=== PATIENT | male | born 1965 | race Caucasian/White ===

== ENCOUNTER 2024-02-24 18:12 | Inpatient (IN) | payer OTHER ==
[~2024-02-24] VITALS: Ht 177.8 cm; Wt 115.2 kg
[2024-02-24] MEDS: ONDANSETRON HCL 4MG/2ML INJ IV ONE (19:54)
[2024-02-24] MEDS: MORPHINE SULFATE 4 MG/ML INJ (FOR IV/IM USE) IV ONE (19:54)
[2024-02-24 21:49] LABS: BASOPHILS % 0.2 % (0.0-2.0); EOSINOPHILS % 0.1 % (0.0-5.0); HEMATOCRIT. 40.7 % (42.0-52.0); HEMOGLOBIN. 13.5 g/dL (14.0-18.0); LYMPHOCYTES % 7.1 % (20.0-50.0); MEAN CORPUSCULAR HEMOGLOBIN 32.9 pg (28.0-32.0); MEAN CORPUSCULAR HGB CONC 33.2 g/dL (31.0-37.0); MEAN CORPUSCULAR VOLUME 98.9 fL (80.0-94.0); MEAN PLATELET VOLUME 10.1 fl (7.4-10.4); MONOCYTES % 5.3 % (2.0-8.0); NEUTROPHILS % 87.3 % (40.0-76.0); PLATELET 208 x1000/uL (130-400); RED BLOOD CELL COUNT 4.12 mill/uL (4.7-6.1); RED CELL DISTRIBUTION WIDTH 14.1 % (11.6-14.6); WHITE BLOOD COUNT 11.4 x1000/uL (4.5-11.0)
[2024-02-24 21:52] LABS: CHLORIDE 109 mEq/L (98-107); POTASSIUM 3.5 mEq/L (3.5-5.1); SODIUM 143 mEq/L (136-145)
[2024-02-24 21:53] LABS: CARBON DIOXIDE 24 mEq/L (21-32)
[2024-02-24 21:54] LABS: CALCIUM 9.4 mg/dL (8.7-10.4)
[2024-02-24 21:58] LABS: CREATININE 0.9 mg/dL (0.6-1.3); GLUCOSE 127 mg/dL (70-105)
[2024-02-24 21:59] LABS: UREA NITROGEN BLOOD 20 mg/dL (9-23)
[2024-02-24] MEDS: HYDROCODONE/ACETAMINOPHEN 5/325MG TABLET PO PRN (23:26)
[2024-02-25] MEDS ORDERED: DOCUSATE SODIUM 100MG CAPSULE PO PRN (00:15)
[2024-02-25] MEDS ORDERED: ZOLPIDEM TARTRATE 5MG TABLET PO PRN (00:15)
[2024-02-25] MEDS ORDERED: ONDANSETRON HCL 4MG/2ML INJ IV PRN ×3 (00:15→17:30)
[2024-02-25] MEDS ORDERED: IPRATROPIUM/ALBUTEROL 0.5-3(2.5)MG/3ML NEB NEB PRN (00:15)
[2024-02-25] MEDS: DEXT 5%/0.45% NACL 1000ML 1,000 ML IV SCH (00:15)
[2024-02-25] MEDS ORDERED: DEXTROSE 50% WATER 50ML SYRINGE IV PRN (00:15)
[2024-02-25] MEDS ORDERED: CLONIDINE 0.1MG TABLET PO PRN (00:15)
[2024-02-25 00:21] LABS: CLARITY URINE CLEAR (CLEAR); COLOR URINE YELLOW (YELLOW); GLUCOSE URINE 3+ (NEGATIVE); KETONES URINE 1+ (NEGATIVE); LEUKOCYTE ESTERASE URINE NEGATIVE (NEGATIVE); NITRITE URINE NEGATIVE (NEGATIVE); OCCULT BLOOD URINE NEGATIVE (NEGATIVE); PROTEIN URINE 2+ (NEGATIVE); SPECIFIC GRAVITY URINE 1.043 (1.005-1.030); UROBILINOGEN URINE 0.2 E.U./dL (0.2-1.0)
[2024-02-25 00:30] LABS: *AMPHETAMINES SCREEN URINE NEGATIVE (NEGATIVE); *BARBITURATES SCREEN URINE NEGATIVE (NEGATIVE); *BENZODIAZEPINES SCREEN URINE NEGATIVE (NEGATIVE)
[2024-02-25 00:31] LABS: *COCAINE SCREEN URINE NEGATIVE (NEGATIVE); CANNABINOID URINE SCREEN NEGATIVE (NEGATIVE); ECSTASY MDMA SCREEN URINE NEGATIVE (NEGATIVE); METHADONE URINE SCREEN NEGATIVE (NEGATIVE); OPIATES URINE SCREEN PRESUMPTIVE POSITIVE (NEGATIVE); PHENCYCLIDINE URINE SCREEN NEGATIVE (NEGATIVE)
[2024-02-25 00:53] LABS: BACTERIA URINE NONE SEEN; RBC URINE NONE SEEN /hpf (0-2); SQUAMOUS EPITHELIAL CELL URINE NONE SEEN /lpf (RARE/1+); WBC URINE NONE SEEN /hpf (0-2)
[2024-02-25] MEDS: MORPHINE SULFATE 2 MG/ML INJ (NOT FOR IM USE) IV PRN (01:01)
[2024-02-25 02:00] VITALS: BP 144/78; PULSE 100; RESP 17; TEMP 36.3068
[2024-02-25 02:00] LABS: CREATINE KINASE MB FRACTION 3.1 ng/mL (0.5-3.6)
[2024-02-25 02:02] LABS: CREATINE KINASE 197 IU/L (46-171)
[2024-02-25 02:19] LABS: TROPONIN I HIGH SENSITIVITY < 4 ng/L (3.0-53)
[2024-02-25] MEDS: MORPHINE SULFATE 4 MG/ML INJ (FOR IV/IM USE) IV PRN (05:24)
[2024-02-25] MEDS: BLOOD SUGAR DIAGNOSTIC STRIP TEST SCH (06:54)
[2024-02-25] MEDS: INSULIN LISPRO 100 UNITS/ML SUBCUT SCH (07:15)
[2024-02-25 08:00] VITALS: BP 155/82; PULSE 103; RESP 17; TEMP 36.50292; O2SAT 96
[2024-02-25 12:00] VITALS: BP 141/77; PULSE 102; RESP 16; TEMP 36.3918; O2SAT 100
[2024-02-25] MEDS ORDERED: TRANEXAMIC ACID 1000MG PREMIX 200 ML IV ONE (14:03)
[2024-02-25] MEDS ORDERED: VANCOMYCIN HCL 1GM VIAL ONE (14:04)
[2024-02-25] MEDS ORDERED: BACITRACIN 14GM TUBE TOP ONE (14:04)
[2024-02-25] MEDS ORDERED: POLYMYXIN B SULFATE 500000 UNITS/VIAL ONE (14:04)
[2024-02-25] MEDS ORDERED: ROPIVACAINE HCL 1% 20 ML VIAL EPI ONE (14:04)
[2024-02-25] MEDS ORDERED: MORPHINE SULFATE/PF 1MG/ML 10ML AMP ONE (14:05)
[2024-02-25] MEDS ORDERED: EPINEPHRINE 1:1000 1 MG/ML AMP ONE (14:05)
[2024-02-25] MEDS ORDERED: KETOROLAC 30MG/ML VIAL ONE (14:05)
[2024-02-25 16:00] VITALS: BP 142/85; PULSE 100; RESP 18; TEMP 36.55848; O2SAT 99
[2024-02-25] MEDS ORDERED: FENTANYL CITRATE/PF 50MCG/ML 2ML VIAL IV PRN (16:45)
[2024-02-25] MEDS ORDERED: PROPOFOL 200MG/20ML VIAL IV ONE (17:09)
[2024-02-25] MEDS ORDERED: PHENYLEPHRINE HCL 10MG/ML 1ML IV ONE (17:10)
[2024-02-25] MEDS ORDERED: ROCURONIUM BROMIDE 10MG/ML VIAL 5ML IV ONE ×2 (17:10→18:42)
[2024-02-25] MEDS ORDERED: MIDAZOLAM HCL 2 MG/2 ML VIAL ONE (17:16)
[2024-02-25] MEDS ORDERED: FENTANYL CITRATE/PF 50MCG/ML 5ML VIAL ONE (17:16)
[2024-02-25] MEDS ORDERED: KETOROLAC 30MG/ML VIAL IV PRN (17:30)
[2024-02-25] MEDS ORDERED: NALOXONE HCL 0.4MG/ML VIAL IV PRN (17:30)
[2024-02-25] MEDS ORDERED: ONDANSETRON HCL 4MG/2ML INJ ONE (18:46)
[2024-02-25] MEDS ORDERED: METOCLOPRAMIDE HCL 10MG/2ML VIAL ONE (18:46)
[2024-02-25] MEDS ORDERED: FENTANYL CITRATE/PF 50MCG/ML 2ML VIAL ONE (18:47)
[2024-02-25] MEDS ORDERED: CEFAZOLIN SODIUM 1000MG/VIAL ONE (18:51)
[2024-02-25] MEDS ORDERED: SUGAMMADEX SODIUM 200MG/2ML VIAL IV ONE (19:02)
[2024-02-25] MEDS ORDERED: SKIN ADHESIVE 0.7 GM EA TOP ONE (19:08)
[2024-02-25] MEDS ORDERED: CEFAZOLIN 1000MG PREMIX 50 ML IV SCH (20:00)
[2024-02-25] MEDS: HYDROMORPHONE HCL/PF 1MG/ML INJ IV PRN (20:16)
[2024-02-25 21:05] VITALS: BP 151/78; PULSE 107; RESP 18; TEMP 36.50292; O2SAT 99
[2024-02-25] MEDS: METOCLOPRAMIDE HCL 10MG/2ML VIAL IV SCH (21:57)
[2024-02-25] MEDS: SENNOSIDES/DOCUSATE SOD 8.6/50MG TABLET PO SCH (21:57)
[2024-02-26] VITALS: BP 129/68; PULSE 103; RESP 20; TEMP 37.05852; O2SAT 97
[2024-02-26] MEDS: CEFAZOLIN 1000MG PREMIX 50 ML IV SCH (03:53)
[2024-02-26 04:00] VITALS: BP 129/74; PULSE 103; RESP 19; TEMP 37.05852
[2024-02-26 08:00] VITALS: BP 133/76; PULSE 95; RESP 20; TEMP 36.6696; O2SAT 100
[2024-02-26] MEDS ORDERED: DIPYRIDAMOLE 25 MG TABLET PO SCH (09:00)
[2024-02-26] MEDS: ASPIRIN 81MG TABLET PO SCH (09:07)
[2024-02-26] MEDS ORDERED: PIOG45TA62 PO (09:44)
[2024-02-26] MEDS ORDERED: RAMI2.5C56 PO (09:47)
[2024-02-26] MEDS ORDERED: GLIM4TAB36 MT (09:51)
[2024-02-26] MEDS ORDERED: INSU3INS8 SUBCUT (09:51)
[2024-02-26] MEDS: HYDROCODONE/ACETAMINOPHEN 5/325MG TABLET PO PRN ×2 (09:59→14:35)
[2024-02-26] MEDS ORDERED: ATOR-2 MT (10:07)
[2024-02-26] MEDS ORDERED: EMPA1TAB24 PO (10:07)
[2024-02-26 10:19] LABS: BASOPHILS % 0.2 % (0.0-2.0); DIFFERENTIAL COMMENT 0; EOSINOPHILS % 0.1 % (0.0-5.0); HEMATOCRIT. 38.7 % (42.0-52.0); HEMOGLOBIN. 12.3 g/dL (14.0-18.0); LYMPHOCYTES % 10.8 % (20.0-50.0); MEAN CORPUSCULAR HEMOGLOBIN 33.9 pg (28.0-32.0); MEAN CORPUSCULAR HGB CONC 31.7 g/dL (31.0-37.0); MEAN CORPUSCULAR VOLUME 106.8 fL (80.0-94.0); MEAN PLATELET VOLUME 9.7 fl (7.4-10.4); MONOCYTES % 10.9 % (2.0-8.0); PLATELET 184 x1000/uL (130-400); RED BLOOD CELL COUNT 3.62 mill/uL (4.7-6.1); RED CELL DISTRIBUTION WIDTH 15.6 % (11.6-14.6); WHITE BLOOD COUNT 11.3 x1000/uL (4.5-11.0)
[2024-02-26 10:24] LABS: POTASSIUM 4.6 mEq/L (3.5-5.1)
[2024-02-26 10:25] LABS: CALCIUM 8.8 mg/dL (8.7-10.4)
[2024-02-26 10:30] LABS: CREATININE 1.3 mg/dL (0.6-1.3)
[2024-02-26 12:21] VITALS: BP 114/70; PULSE 102; RESP 18; TEMP 36.05844; O2SAT 100
[2024-02-26] MEDS: INS NPH/REG HM 70-30 10ML VIAL (HUMULIN 70-30) SUBCUT SCH ×2 (13:27→17:42)
[2024-02-26] MEDS: ATORVASTATIN CALCIUM 40MG TABLET PO SCH (13:27)
[2024-02-26 16:00] VITALS: BP 122/61; PULSE 107; RESP 20; TEMP 36.6696; O2SAT 99
[2024-02-26 20:00] VITALS: BP 123/69; PULSE 99; RESP 18; TEMP 36.6696; O2SAT 99
[2024-02-26] MEDS ORDERED: ATORVASTATIN CALCIUM 40MG TABLET PO SCH (21:00)
[2024-02-27] VITALS: BP 111/68; PULSE 91; RESP 19; TEMP 36.28068; O2SAT 95
[2024-02-27 04:00] VITALS: BP 121/73; PULSE 89; RESP 18; TEMP 36.3918; O2SAT 99
[2024-02-27 08:00] VITALS: BP 129/75; PULSE 94; RESP 20; TEMP 36.72516; O2SAT 98
[2024-02-27 12:00] VITALS: BP 128/72; PULSE 93; RESP 20; TEMP 36.83628; O2SAT 96
[2024-02-27] MEDS: INS NPH/REG HM 70-30 10ML VIAL (HUMULIN 70-30) SUBCUT SCH (12:07)
[2024-02-27 16:00] VITALS: BP 137/78; PULSE 96; RESP 20; TEMP 36.9474; O2SAT 96
[2024-02-27 20:00] VITALS: BP 119/75; PULSE 101; RESP 18; TEMP 37.05852; O2SAT 100
[2024-02-28] VITALS: BP 132/81; PULSE 98; RESP 17; TEMP 37.16964; O2SAT 99
[2024-02-28 04:00] VITALS: BP 132/78; PULSE 94; RESP 18; TEMP 36.78072; O2SAT 98
[2024-02-28 08:00] VITALS: BP 130/77; PULSE 87; RESP 20; TEMP 36.78072; O2SAT 97
[2024-02-28] MEDS ORDERED: PROMETHAZINE/DEXTROMETHORPHAN 6.25-15MG/5ML PO PRN (10:15)
[2024-02-28 12:00] VITALS: BP 143/74; PULSE 84; RESP 20; TEMP 36.6696; O2SAT 96
[2024-02-28] MEDS ORDERED: DEXTROMETHORPHAN PO PRN (14:30)
[2024-02-28] MEDS ORDERED: PROMETHAZINE PO PRN (14:30)
[2024-02-28] MEDS: PROMETHAZINE PO PRN (15:02)
[2024-02-28] MEDS: DEXTROMETHORPHAN PO PRN (15:02)
[2024-02-28 16:44] VITALS: BP 138/75; PULSE 86; RESP 20; TEMP 36.72516; O2SAT 96
[2024-02-28 20:00] VITALS: BP 134/84; PULSE 92; RESP 18; TEMP 36.50292; O2SAT 98
[2024-02-29] VITALS (7 sets, daily range): BP systolic 123–148; BP diastolic 75–90; PULSE 65–93; RESP 18–20; TEMP 36.22512–37.72524; O2SAT 95–99
[2024-02-29] MEDS: ACETAMINOPHEN 325MG TABLET PO PRN (09:18)
[2024-02-29] MEDS ORDERED: LIP40 PO (11:13)
[2024-02-29] MEDS ORDERED: SENN1TAB35 PO (11:13)
[2024-02-29] MEDS ORDERED: ASPI-1160 PO (11:13)
[2024-02-29] MEDS ORDERED: HYDR-4001 PO (11:13)
[2024-03-01] VITALS: BP 125/74; PULSE 84; RESP 18; TEMP 37.61412; O2SAT 97
[2024-03-01 04:00] VITALS: BP 120/77; PULSE 85; RESP 19; TEMP 36.78072; O2SAT 98
[2024-03-01 08:00] VITALS: BP 117/78; PULSE 88; RESP 18; TEMP 37.28076; O2SAT 97
[2024-03-01 12:41] VITALS: BP 128/75; PULSE 92; RESP 18; TEMP 36.61404; O2SAT 97
[2024-03-01] MEDS: ACETAMINOPHEN 325MG TABLET PO PRN (13:22)
[2024-03-01 16:00] VITALS: BP 124/76; PULSE 90; RESP 18; TEMP 37.11408; O2SAT 97
[2024-03-01 20:00] VITALS: BP 152/92; PULSE 92; RESP 18; TEMP 36.28068; O2SAT 95
[2024-03-02] VITALS: BP 142/84; PULSE 93; RESP 18; TEMP 36.28068; O2SAT 95
[2024-03-02 04:00] VITALS: BP 133/80; PULSE 97; RESP 18; TEMP 36.28068; O2SAT 96
[2024-03-02 08:00] VITALS: BP 131/73; PULSE 91; RESP 19; TEMP 36.55848; O2SAT 98
[2024-03-02 12:00] VITALS: BP 129/70; PULSE 88; RESP 19; TEMP 36.3918; O2SAT 99
[2024-03-02 16:00] VITALS: BP 127/75; PULSE 89; RESP 19; TEMP 36.61404; O2SAT 99
[2024-03-02 20:00] VITALS: BP 145/73; PULSE 98; RESP 18; TEMP 36.3918; O2SAT 98
[2024-03-02 22:03] LABS: BASOPHILS % 0.6 % (0.0-2.0); CHLORIDE 103 mEq/L (98-107); EOSINOPHILS % 2.2 % (0.0-5.0); HEMATOCRIT. 35.1 % (42.0-52.0); HEMOGLOBIN. 12.1 g/dL (14.0-18.0); LYMPHOCYTES % 16.8 % (20.0-50.0); MEAN CORPUSCULAR HEMOGLOBIN 33.8 pg (28.0-32.0); MEAN CORPUSCULAR HGB CONC 34.5 g/dL (31.0-37.0); MEAN PLATELET VOLUME 8.5 fl (7.4-10.4); MONOCYTES % 11.4 % (2.0-8.0); PLATELET 245 x1000/uL (130-400); POTASSIUM 4.1 mEq/L (3.5-5.1); RED BLOOD CELL COUNT 3.58 mill/uL (4.7-6.1); RED CELL DISTRIBUTION WIDTH 13.8 % (11.6-14.6); SODIUM 140 mEq/L (136-145); WHITE BLOOD COUNT 7.6 x1000/uL (4.5-11.0)
[2024-03-02 22:04] LABS: CALCIUM 9.2 mg/dL (8.7-10.4); CARBON DIOXIDE 32 mEq/L (21-32)
[2024-03-02 22:09] LABS: CREATININE 0.7 mg/dL (0.6-1.3); GLUCOSE 152 mg/dL (70-105); UREA NITROGEN BLOOD 13 mg/dL (9-23)
[2024-03-02 22:11] LABS: ALANINE AMINOTRANSFERASE 12 IU/L (10-49); ALBUMIN 3.5 g/dL (3.2-4.8); ASPARTATE AMINOTRANSFERASE 25 IU/L (<34); BILIRUBIN TOTAL 0.8 mg/dL (0.1-1.0)
[2024-03-02 22:12] LABS: PROTEIN TOTAL 6.1 g/dL (6.0-8.3)
[2024-03-03] VITALS: BP 113/75; PULSE 109; RESP 20; TEMP 36.28068; O2SAT 99
[2024-03-03 04:00] VITALS: BP 124/73; PULSE 96; RESP 18; TEMP 36.22512; O2SAT 98
[2024-03-03 08:00] VITALS: BP_SYST 146; BP_DIAS 77; BP_DIAS 78; PULSE 91; RESP 20; TEMP 36.114; TEMP 36.55848; O2SAT 100
[2024-03-03 12:00] VITALS: BP 107/71; PULSE 90; RESP 17; TEMP 36.6696; O2SAT 98
[2024-03-03 16:00] VITALS: BP 127/72; PULSE 92; RESP 15; TEMP 37.16964; O2SAT 99
[2024-03-03] MEDS: ATORVASTATIN CALCIUM 40MG TABLET PO SCH (21:00)
[2024-03-04 13:49] LABS: BASOPHILS % 0.6 % (0.0-2.0); EOSINOPHILS % 2.2 % (0.0-5.0); HEMATOCRIT. 38.4 % (42.0-52.0); HEMOGLOBIN. 12.8 g/dL (14.0-18.0); LYMPHOCYTES % 17.4 % (20.0-50.0); MEAN CORPUSCULAR HGB CONC 33.4 g/dL (31.0-37.0); MEAN CORPUSCULAR VOLUME 98.8 fL (80.0-94.0); MEAN PLATELET VOLUME 8.1 fl (7.4-10.4); MONOCYTES % 11.2 % (2.0-8.0); NEUTROPHILS % 68.6 % (40.0-76.0); PLATELET 310 x1000/uL (130-400); RED BLOOD CELL COUNT 3.89 mill/uL (4.7-6.1); WHITE BLOOD COUNT 9.8 x1000/uL (4.5-11.0)
[2024-03-04 13:51] LABS: CHLORIDE 102 mEq/L (98-107); POTASSIUM 4.4 mEq/L (3.5-5.1); SODIUM 138 mEq/L (136-145)
[2024-03-04 13:52] LABS: CALCIUM 9.2 mg/dL (8.7-10.4); CARBON DIOXIDE 28 mEq/L (21-32)
[2024-03-04 13:57] LABS: CREATININE 0.9 mg/dL (0.6-1.3); GLUCOSE 222 mg/dL (70-105); UREA NITROGEN BLOOD 19 mg/dL (9-23)
[2024-03-04 20:00] VITALS: BP 117/67; PULSE 84; RESP 18; TEMP 36.50292; O2SAT 98
[2024-03-05] VITALS: BP 123/73; PULSE 82; RESP 18; TEMP 36.22512; O2SAT 100
[2024-03-05 04:00] VITALS: BP 116/73; PULSE 82; RESP 18; TEMP 36.22512; O2SAT 98
[2024-03-05 08:00] VITALS: BP 97/50; PULSE 79; RESP 18; TEMP 36.50292; O2SAT 97
[2024-03-05 12:00] VITALS: BP 125/65; PULSE 78; RESP 19; TEMP 36.72516; O2SAT 98
[2024-03-05 16:00] VITALS: BP 155/73; PULSE 114; RESP 19; TEMP 36.28068; O2SAT 97
[2024-03-05 20:00] VITALS: BP 122/60; PULSE 90; RESP 19; TEMP 36.78072; O2SAT 98
[2024-03-06] VITALS: BP 105/63; PULSE 82; RESP 20; TEMP 36.72516; O2SAT 99
[2024-03-06 04:00] VITALS: BP 123/63; PULSE 75; RESP 19; TEMP 36.22512; O2SAT 98
[2024-03-06 08:00] VITALS: BP 121/62; PULSE 67; RESP 18; TEMP 36.28068; O2SAT 98
[2024-03-06 12:00] VITALS: BP 103/72; PULSE 75; RESP 18; TEMP 36.50292; TEMP 36.78072; O2SAT 97; O2SAT 98
[2024-03-06 16:00] VITALS: BP 121/73; PULSE 87; RESP 18; TEMP 37.00296; O2SAT 94
[2024-03-06 20:00] VITALS: BP 127/68; PULSE 18; RESP 16; TEMP 37.05852; O2SAT 96
[2024-03-07] VITALS (7 sets, daily range): BP systolic 108–149; BP diastolic 49–78; PULSE 18–88; RESP 18–20; TEMP 36.3918–37.11408; O2SAT 96–100
[2024-03-08] VITALS: BP 125/76; PULSE 72; RESP 18; TEMP 36.61404; O2SAT 100
[2024-03-08 04:00] VITALS: BP 110/59; PULSE 82; RESP 17; TEMP 36.78072; O2SAT 99
[2024-03-08 08:00] VITALS: BP 125/72; PULSE 79; RESP 18; TEMP 36.16956; O2SAT 99
[2024-03-08 12:00] VITALS: BP 125/71; PULSE 90; RESP 18; TEMP 36.44736; O2SAT 97
[2024-03-08 16:00] VITALS: BP 121/79; PULSE 80; RESP 18; TEMP 36.3918; O2SAT 97
[2024-03-08 20:00] VITALS: BP 126/72; PULSE 85; RESP 20; TEMP 36.61404
[2024-03-09] VITALS: BP 123/69; PULSE 75; RESP 20; TEMP 36.50292; O2SAT 98
[2024-03-09 04:00] VITALS: BP 140/75; PULSE 72; RESP 20; TEMP 36.50292; O2SAT 98
[2024-03-09 08:00] VITALS: BP 125/90; PULSE 74; RESP 19; TEMP 36.28068; O2SAT 98
[2024-03-09 12:00] VITALS: BP_SYST 122; BP_SYST 125; BP_DIAS 72; BP_DIAS 90; PULSE 74; PULSE 91; RESP 19; TEMP 36.28068; TEMP 36.50292; O2SAT 96; O2SAT 98
[2024-03-09 16:00] VITALS: BP 122/67; PULSE 77; RESP 18; TEMP 36.50292; O2SAT 99
[2024-03-09 20:00] VITALS: BP 124/70; PULSE 86; RESP 18; TEMP 36.72516; O2SAT 95
[2024-03-10] VITALS: BP 125/71; PULSE 88; RESP 18; TEMP 36.44736; O2SAT 97
[2024-03-10 04:00] VITALS: BP 123/75; PULSE 89; RESP 19; TEMP 36.3918; O2SAT 99
[2024-03-10 08:00] VITALS: BP 121/80; PULSE 79; RESP 19; TEMP 36.50292; O2SAT 96
[2024-03-10 12:00] VITALS: BP 114/67; PULSE 86; RESP 19; TEMP 36.33624; O2SAT 96
[2024-03-10 16:00] VITALS: BP 128/74; PULSE 78; RESP 20; TEMP 36.6696; O2SAT 98
[2024-03-10 20:00] VITALS: BP 117/67; PULSE 70; RESP 19; TEMP 36.3918; O2SAT 97
[2024-03-11] VITALS: BP 124/71; PULSE 71; RESP 18; TEMP 36.61404; O2SAT 97
[2024-03-11 04:00] VITALS: BP 121/92; PULSE 71; RESP 18; TEMP 36.22512; O2SAT 98
[2024-03-11 08:00] VITALS: BP 128/72; PULSE 72; RESP 19; TEMP 36.83628; O2SAT 99
[2024-03-11 11:45] VITALS: BP 104/69; PULSE 80; TEMP 98.3; O2SAT 98
[2024-03-11 12:00] VITALS: BP 104/79; PULSE 80; RESP 19; TEMP 36.50292; O2SAT 98
== END 2024-03-11 13:05 | disposition home health service (06) | DRG 522 ==
LOC: ER 18:12 → 5WST 21:03 → EDBEDREQ 21:23 → EDBEDREQTM 21:23 → EDBEDREQSVC 21:23 → 6WST 02-25 16:58 → 7EST 03-03 08:45
PROVIDERS: ADMIT Internal Medicine; ATTEND Internal Medicine
PROC: 0SRB03Z Replacement of Left Hip Joint with Ceramic Synthetic Substitute, Open Approach (ICD-10-PCS; principal; 2024-02-26)
DX: S72.092A Other fracture of head and neck of left femur, initial encounter for closed fracture (principal); N17.9 Acute kidney failure, unspecified; M62.82 Rhabdomyolysis; E11.40 Type 2 diabetes mellitus with diabetic neuropathy, unspecified; I10 Essential (primary) hypertension; D64.9 Anemia, unspecified; M72.0 Palmar fascial fibromatosis [Dupuytren]; Z96.649 Presence of unspecified artificial hip joint; R26.9 Unspecified abnormalities of gait and mobility; R53.81 Other malaise; D72.829 Elevated white blood cell count, unspecified; W11.XXXA Fall on and from ladder, initial encounter; Z79.4 Long term (current) use of insulin; Z83.3 Family history of diabetes mellitus; Z88.8 Allergy status to other drugs, medicaments and biological substances; Y93.89 Activity, other specified; Y92.89 Other specified places as the place of occurrence of the external cause; Y99.8 Other external cause status
CPT/HCPCS: 36415; 72170; 72192; 73502; 73552; 76000; 80048; 80053; 80305; 81003; 82550; 82553; 82962; 84484; 85025; 86850; 86900; 88305; 88311; 93005; 93306; 93970; 97110; 97116; 97162; 97164; 97166; 97530; 97535; 99285; J0690; J1171; J1815; J1885; J2250; J2270; J2274; J2405; J2704; J2765; J2795; J3010; J3370; J3490; C1776

== ENCOUNTER → 2024-03-14 | Outpatient (CLI) | payer OTHER ==
[~2024-03-14] MED LIST: ASPI-1160 PO; ATOR-2 MT; EMPA1TAB24 PO; GLIM4TAB36 MT; HYDR-4001 PO; INSU3INS8 SUBCUT; LIP40 PO; PIOG45TA62 PO; RAMI2.5C56 PO; SENN1TAB35 PO
== END | disposition home or self-care (01) ==
LOC: RAD 11:43
DX: S72.092D Other fracture of head and neck of left femur, subsequent encounter for closed fracture with routine healing (principal); Z96.642 Presence of left artificial hip joint; X58.XXXD Exposure to other specified factors, subsequent encounter
CPT/HCPCS: 73502